=== PATIENT | male | born 1940 | race Caucasian/White ===

== ENCOUNTER 2017-05-04 11:46 | Outpatient (CLI) | payer OTHER ==
[~2017-05-04 11:46] MED LIST: GABAPENTIN300 MG PO; TRAMADOL HCL50 MG PO
== END 2017-05-04 11:47 | disposition home or self-care (01) ==
LOC: SONOGRAMA 11:46
DX: R97.20 Elevated prostate specific antigen [PSA] (principal)

== ENCOUNTER 2017-05-05 08:18 | Outpatient (CLI) | payer OTHER | END 2017-05-05 08:31 | disposition home or self-care (01) | LOC: LAB 08:18 | DX: R97.21 Rising PSA following treatment for malignant neoplasm of prostate (principal) ==

== ENCOUNTER 2017-06-22 09:25 | Outpatient (CLI) | payer OTHER | END 2017-06-22 09:29 | disposition home or self-care (01) | LOC: SONOGRAMA 09:25 | DX: E04.1 Nontoxic single thyroid nodule (principal) ==

== ENCOUNTER 2017-12-27 15:43 | Outpatient (CLI) | payer OTHER | END 2017-12-27 16:11 | disposition home or self-care (01) | LOC: SONOGRAMA 15:43 | DX: E04.1 Nontoxic single thyroid nodule (principal); C75.9 Malignant neoplasm of endocrine gland, unspecified ==

== ENCOUNTER 2017-12-28 08:55 | Outpatient (CLI) | payer OTHER | END 2017-12-28 09:04 | disposition home or self-care (01) | LOC: LAB 08:55 | DX: I11.0 Hypertensive heart disease with heart failure (principal); D53.8 Other specified nutritional anemias; N39.0 Urinary tract infection, site not specified; E78.2 Mixed hyperlipidemia; E04.0 Nontoxic diffuse goiter ==

== ENCOUNTER 2018-04-18 10:49 | Outpatient (CLI) | payer OTHER | END 2018-04-18 11:19 | disposition home or self-care (01) | LOC: LAB 10:49 | DX: D73.89 Other diseases of spleen (principal); I10 Essential (primary) hypertension; E11.9 Type 2 diabetes mellitus without complications; E78.2 Mixed hyperlipidemia; N39.0 Urinary tract infection, site not specified; Z12.11 Encounter for screening for malignant neoplasm of colon; E04.2 Nontoxic multinodular goiter; E78.49 Other hyperlipidemia ==

== ENCOUNTER 2018-05-23 14:15 | Outpatient (CLI) | payer OTHER | END 2018-05-23 14:16 | disposition home or self-care (01) | LOC: SONOGRAMA 14:15 | DX: E04.1 Nontoxic single thyroid nodule (principal); E03.8 Other specified hypothyroidism ==

== ENCOUNTER → 2018-05-25 | Outpatient (CLI) | payer OTHER | END | disposition home or self-care (01) | LOC: LAB 10:20 | DX: Z12.5 Encounter for screening for malignant neoplasm of prostate (principal) ==

== ENCOUNTER 2018-07-23 10:51 | Outpatient (CLI) | payer OTHER | END 2018-07-23 12:27 | disposition home or self-care (01) | LOC: LAB 10:51 | DX: R97.21 Rising PSA following treatment for malignant neoplasm of prostate (principal) ==

== ENCOUNTER → 2019-01-22 12:31 | Outpatient (CLI) | payer OTHER | END | disposition home or self-care (01) | LOC: LAB 12:31 | DX: E04.1 Nontoxic single thyroid nodule (principal); D53.8 Other specified nutritional anemias; I11.0 Hypertensive heart disease with heart failure; N39.0 Urinary tract infection, site not specified; E78.2 Mixed hyperlipidemia ==

== ENCOUNTER 2019-04-02 09:00 | Outpatient (CLI) | payer OTHER | END 2019-04-02 09:01 | disposition home or self-care (01) | LOC: RAD 09:00 | DX: R06.83 Snoring (principal) ==

== ENCOUNTER 2019-04-02 09:54 | Outpatient (CLI) | payer OTHER | END 2019-04-02 09:58 | disposition home or self-care (01) | LOC: LAB 09:54 | DX: E03.8 Other specified hypothyroidism (principal); R73.01 Impaired fasting glucose; Z12.5 Encounter for screening for malignant neoplasm of prostate; E86.0 Dehydration ==

== ENCOUNTER → 2019-09-13 10:33 | Outpatient (CLI) | payer OTHER | END | disposition home or self-care (01) | LOC: LAB 10:33 | PROVIDERS: ATTEND Family Medicine Adult Medicine | DX: Z12.11 Encounter for screening for malignant neoplasm of colon (principal) ==

== ENCOUNTER 2019-10-17 13:32 | Outpatient (CLI) | payer OTHER | END 2019-10-17 13:42 | disposition home or self-care (01) | LOC: LAB 13:32 | PROVIDERS: ATTEND Internal Medicine Endocrinology, Diabetes & Metabolism | DX: I11.0 Hypertensive heart disease with heart failure (principal); E04.1 Nontoxic single thyroid nodule; D53.8 Other specified nutritional anemias; N39.0 Urinary tract infection, site not specified; E78.2 Mixed hyperlipidemia ==

== ENCOUNTER 2020-04-02 10:28 | Outpatient (CLI) | payer OTHER | END 2020-04-02 10:43 | disposition home or self-care (01) | LOC: LAB 10:28 | PROVIDERS: ATTEND Internal Medicine Endocrinology, Diabetes & Metabolism | DX: I11.0 Hypertensive heart disease with heart failure (principal); E78.2 Mixed hyperlipidemia; D53.8 Other specified nutritional anemias; N39.0 Urinary tract infection, site not specified; E04.8 Other specified nontoxic goiter; N40.0 Benign prostatic hyperplasia without lower urinary tract symptoms ==

== ENCOUNTER 2020-05-05 13:50 | Outpatient (CLI) | payer OTHER | END 2020-05-05 13:56 | disposition home or self-care (01) | LOC: LAB 13:50 | PROVIDERS: ATTEND Internal Medicine Endocrinology, Diabetes & Metabolism | DX: N39.0 Urinary tract infection, site not specified (principal) ==

== ENCOUNTER → 2020-05-18 11:58 | Outpatient (CLI) | payer OTHER | END | disposition home or self-care (01) | LOC: LAB 11:58 | PROVIDERS: ATTEND Internal Medicine Endocrinology, Diabetes & Metabolism | DX: N39.0 Urinary tract infection, site not specified (principal); N40.0 Benign prostatic hyperplasia without lower urinary tract symptoms ==

== ENCOUNTER → 2020-09-21 10:47 | Outpatient (CLI) | payer OTHER | END | disposition home or self-care (01) | LOC: LAB 10:47 | PROVIDERS: ATTEND Internal Medicine Endocrinology, Diabetes & Metabolism | DX: I11.0 Hypertensive heart disease with heart failure (principal); D53.9 Nutritional anemia, unspecified; N39.0 Urinary tract infection, site not specified; E04.9 Nontoxic goiter, unspecified; E78.2 Mixed hyperlipidemia ==

== ENCOUNTER 2020-10-20 09:20 | Outpatient (CLI) | payer OTHER | END 2020-10-20 09:21 | disposition home or self-care (01) | LOC: NUCLEAR 09:20 | PROVIDERS: ATTEND Internal Medicine Endocrinology, Diabetes & Metabolism | DX: I44.2 Atrioventricular block, complete (principal); I25.758 Atherosclerosis of native coronary artery of transplanted heart with other forms of angina pectoris ==

== ENCOUNTER 2020-10-28 13:04 | Outpatient (CLI) | payer OTHER | END 2020-10-28 13:09 | disposition home or self-care (01) | LOC: SONOGRAMA 13:04 → MAMO-SONO 15:15 | PROVIDERS: ATTEND Internal Medicine Endocrinology, Diabetes & Metabolism | DX: E04.2 Nontoxic multinodular goiter (principal); E04.1 Nontoxic single thyroid nodule ==

== ENCOUNTER 2021-02-11 14:46 | Outpatient (CLI) | payer OTHER | END 2021-02-11 14:51 | disposition home or self-care (01) | LOC: LAB 14:46 | PROVIDERS: ATTEND Radiology Diagnostic Radiology | DX: H93.3X3 Disorders of bilateral acoustic nerves (principal); R42 Dizziness and giddiness ==

== ENCOUNTER 2021-02-17 10:59 | Outpatient (CLI) | payer OTHER | END 2021-02-17 11:08 | disposition home or self-care (01) | LOC: MRI 10:59 | PROVIDERS: ATTEND Neuromusculoskeletal Medicine & OMM | DX: Q14.2 Congenital malformation of optic disc (principal); G93.89 Other specified disorders of brain; Q28.2 Arteriovenous malformation of cerebral vessels; R42 Dizziness and giddiness; H93.3X9 Disorders of unspecified acoustic nerve; I72.8 Aneurysm of other specified arteries; I65.1 Occlusion and stenosis of basilar artery; I65.09 Occlusion and stenosis of unspecified vertebral artery; I65.29 Occlusion and stenosis of unspecified carotid artery | CPT/HCPCS: 70544; 70553; A9575 ==

== ENCOUNTER 2021-04-23 10:13 | Outpatient (CLI) | payer OTHER | END 2021-04-23 10:23 | disposition home or self-care (01) | LOC: MRI 10:13 | DX: M50.323 Other cervical disc degeneration at C6-C7 level (principal); R26.89 Other abnormalities of gait and mobility | CPT/HCPCS: 72141 ==

== ENCOUNTER 2021-04-29 11:09 | Outpatient (CLI) | payer OTHER | END 2021-04-29 11:22 | disposition home or self-care (01) | LOC: LAB 11:09 | PROVIDERS: ATTEND Internal Medicine Endocrinology, Diabetes & Metabolism | DX: N40.0 Benign prostatic hyperplasia without lower urinary tract symptoms (principal); E78.2 Mixed hyperlipidemia; I11.0 Hypertensive heart disease with heart failure; N39.0 Urinary tract infection, site not specified; D53.8 Other specified nutritional anemias; E04.8 Other specified nontoxic goiter; E11.9 Type 2 diabetes mellitus without complications; E55.9 Vitamin D deficiency, unspecified ==

== ENCOUNTER 2021-04-30 14:49 | Outpatient (CLI) | payer OTHER | END 2021-04-30 14:50 | disposition home or self-care (01) | LOC: LAB 14:49 | PROVIDERS: ATTEND Internal Medicine Endocrinology, Diabetes & Metabolism | DX: N40.0 Benign prostatic hyperplasia without lower urinary tract symptoms (principal); N39.0 Urinary tract infection, site not specified; D53.8 Other specified nutritional anemias; E78.2 Mixed hyperlipidemia; I11.0 Hypertensive heart disease with heart failure; E04.8 Other specified nontoxic goiter; E55.9 Vitamin D deficiency, unspecified ==

== ENCOUNTER 2021-05-06 14:02 | Outpatient (CLI) | payer OTHER | END 2021-05-06 14:10 | disposition home or self-care (01) | LOC: MRI 14:02 | DX: R26.89 Other abnormalities of gait and mobility (principal) | CPT/HCPCS: 72146 ==

== ENCOUNTER 2021-05-26 10:54 | Outpatient (CLI) | payer OTHER | END 2021-05-26 11:00 | disposition home or self-care (01) | LOC: MRI 10:54 | DX: M54.30 Sciatica, unspecified side (principal) | CPT/HCPCS: 72148 ==

== ENCOUNTER 2021-11-17 10:22 | Outpatient (CLI) | payer OTHER | END 2021-11-17 10:37 | disposition home or self-care (01) | LOC: SONOGRAMA 10:22 | PROVIDERS: ATTEND Internal Medicine Endocrinology, Diabetes & Metabolism | DX: E04.1 Nontoxic single thyroid nodule (principal) ==

== ENCOUNTER 2021-11-17 11:31 | Outpatient (CLI) | payer OTHER | END 2021-11-17 11:35 | disposition home or self-care (01) | LOC: LAB 11:31 | PROVIDERS: ATTEND Internal Medicine Endocrinology, Diabetes & Metabolism | DX: E04.1 Nontoxic single thyroid nodule (principal); E04.9 Nontoxic goiter, unspecified ==

== ENCOUNTER → 2022-03-04 | Outpatient (CLI) | payer OTHER | END | disposition home or self-care (01) | LOC: NUCLEAR 11:49 | PROVIDERS: ATTEND Orthopaedic Surgery | DX: M81.0 Age-related osteoporosis without current pathological fracture (principal) ==

== ENCOUNTER 2022-03-22 13:21 | Outpatient (CLI) | payer OTHER | END 2022-03-22 13:30 | disposition home or self-care (01) | LOC: RAD 13:21 | DX: Z01.818 Encounter for other preprocedural examination (principal) ==

== ENCOUNTER 2022-03-22 13:59 | Outpatient (CLI) | payer OTHER | END 2022-03-22 14:00 | disposition home or self-care (01) | LOC: LAB 13:59 | DX: H53.9 Unspecified visual disturbance (principal); Z20.822 Contact with and (suspected) exposure to COVID-19 ==

== ENCOUNTER → 2022-06-08 13:30 | Outpatient (CLI) | payer OTHER | END | disposition home or self-care (01) | LOC: LAB 13:30 | DX: Z20.828 Contact with and (suspected) exposure to other viral communicable diseases (principal); Z11.52 Encounter for screening for COVID-19; Z03.818 Encounter for observation for suspected exposure to other biological agents ruled out; Z20.822 Contact with and (suspected) exposure to COVID-19; D68.9 Coagulation defect, unspecified; I10 Essential (primary) hypertension ==

== ENCOUNTER 2022-06-08 14:04 | Outpatient (CLI) | payer OTHER | END 2022-06-08 14:08 | disposition home or self-care (01) | LOC: RAD 14:04 | PROVIDERS: ATTEND Ophthalmology | DX: Z01.811 Encounter for preprocedural respiratory examination (principal) ==

== ENCOUNTER 2022-08-11 14:17 | Outpatient (CLI) | payer OTHER | END 2022-08-11 14:18 | disposition home or self-care (01) | LOC: LAB 14:17 | PROVIDERS: ATTEND Internal Medicine Endocrinology, Diabetes & Metabolism | DX: E04.9 Nontoxic goiter, unspecified (principal); I11.9 Hypertensive heart disease without heart failure; D53.9 Nutritional anemia, unspecified; N39.0 Urinary tract infection, site not specified; N40.0 Benign prostatic hyperplasia without lower urinary tract symptoms ==

== ENCOUNTER 2023-04-20 12:19 | Outpatient (CLI) | payer OTHER, BC | END 2023-04-20 12:28 | disposition home or self-care (01) | LOC: SONOGRAMA 12:19 | PROVIDERS: ATTEND Internal Medicine Endocrinology, Diabetes & Metabolism | DX: E04.1 Nontoxic single thyroid nodule (principal) ==

== ENCOUNTER → 2023-04-20 13:19 | Outpatient (CLI) | payer OTHER, BC ==
[2023-04-20 13:53] LABS: HEMATOCRIT 45.6 % (39.0-48.0); HEMOGLOBIN 15.6 g/dL (13-16.00); MEAN CELL VOLUME 100.1 fL (80.0-100.00); MEAN CORPUSCULAR HEMOGLOBIN 34.3 pg (27.00-32.0); MEAN CORPUSCULAR HGB CONC 34.3 g/dl (32.0-36.0); PLATELET COUNT 168 K/uL (150-450); RED BLOOD COUNT 4.56 M/uL (4.00-6.00); RED CELL DISTRIBUTION WIDTH 13.5 % (11.5-14.5)
[2023-04-20 15:19] LABS: ALBUMIN 3.9 gm/dL (3.4-5.0); BILIRUBIN TOTAL 0.7 mg/dL (0.3-1.2); CALCIUM 9.1 mg/dL (8.5-10.1); CHOL HDL RATIO 2.8 (0-5.0); CREATININE SERUM 0.88 mg/dL (0.70-1.30); GFR 83.11; GLOBULINA 2.8 G/DL (2.4-3.5); POTASSIUM 3.95 mEq/L (3.5-5.1); T4 FREE 0.87 NG/ML (0.76-1.46); TOTAL PROTEIN 6.7 gm/dL (6.4-8.2); TSH 0.536 uIU/mL (0.358-3.74)
[2023-04-20 15:36] LABS: PROSTATIC SPECIFIC ANTIGEN 5.25 NG/ML (0.010-4.00)
== END | disposition home or self-care (01) ==
LOC: LAB 13:19
PROVIDERS: ATTEND Internal Medicine Endocrinology, Diabetes & Metabolism
DX: I11.0 Hypertensive heart disease with heart failure (principal); E04.1 Nontoxic single thyroid nodule; D34 Benign neoplasm of thyroid gland; N40.0 Benign prostatic hyperplasia without lower urinary tract symptoms; D64.9 Anemia, unspecified

== ENCOUNTER 2024-03-05 10:04 | Outpatient (CLI) | payer OTHER, BC | END 2024-03-05 10:05 | disposition home or self-care (01) | LOC: NUCLEAR 10:04 | PROVIDERS: ATTEND Internal Medicine Endocrinology, Diabetes & Metabolism | DX: M81.0 Age-related osteoporosis without current pathological fracture (principal) ==

== ENCOUNTER → 2024-03-07 12:49 | Outpatient (CLI) | payer OTHER, BC ==
[2024-03-07 13:19] LABS: HEMATOCRIT 45.6 % (39.0-48.0); MEAN CELL VOLUME 97.5 fL (80.0-100.00); MEAN CORPUSCULAR HEMOGLOBIN 34.2 pg (27.00-32.0); PLATELET COUNT 174 K/uL (150-450); RED BLOOD COUNT 4.68 M/uL (4.00-6.00); RED CELL DISTRIBUTION WIDTH 13.3 % (11.5-14.5)
[2024-03-07 13:22] LABS: PH,URINE 5.5 (5.0-8.0); URINE APPEARANCE Clear; URINE BILIRRUBIN Negative (NEGATIVE); URINE BLOOD Negative; URINE COLOR Yellow; URINE GLUCOSE Negative (NEGATIVE); URINE KETONE Negative (NEGATIVE); URINE LEUKOCYTE Small; URINE NITRATE Negative; URINE PROTEIN Negative (NEGATIVE)
[2024-03-07 13:26] LABS: URINE BACTERIA 15.1 uL (0.0-1933); URINE RBC 17.2 uL (0.0-20.8); URINE WBC 20.2 uL (0.0-23.2)
[2024-03-07 13:56] LABS: BILIRUBIN TOTAL 0.92 mg/dL (0.3-1.2); CALCIUM 9.1 mg/dL (8.5-10.1); CHOL HDL RATIO 2.6 (0-5.0); CREATININE SERUM 0.86 mg/dL (0.70-1.30); GFR 85.14; GLOBULINA 2.7 G/DL (2.4-3.5); POTASSIUM 4.36 mEq/L (3.5-5.1); T4 FREE 0.9 NG/ML (0.76-1.46); TOTAL PROTEIN 6.7 gm/dL (6.4-8.2); TSH 0.46 uIU/mL (0.358-3.74)
[2024-03-07 15:21] LABS: FOLIC ACID > 20.00 ng/ml (4.78-20); VITAMIN D3 25 HYDROXY 47.02 ng/ml (30-120)
== END | disposition home or self-care (01) ==
LOC: LAB 12:49
PROVIDERS: ATTEND Internal Medicine Endocrinology, Diabetes & Metabolism
DX: D53.9 Nutritional anemia, unspecified (principal); I11.0 Hypertensive heart disease with heart failure; E78.2 Mixed hyperlipidemia; N39.0 Urinary tract infection, site not specified; E04.9 Nontoxic goiter, unspecified; E55.9 Vitamin D deficiency, unspecified; E53.8 Deficiency of other specified B group vitamins; K76.0 Fatty (change of) liver, not elsewhere classified; Z12.11 Encounter for screening for malignant neoplasm of colon; M06.9 Rheumatoid arthritis, unspecified

== ENCOUNTER 2024-05-13 13:33 | Outpatient (CLI) | payer OTHER, BC | END 2024-05-13 13:38 | disposition home or self-care (01) | LOC: SONOGRAMA 13:33 | PROVIDERS: ATTEND Internal Medicine Endocrinology, Diabetes & Metabolism | DX: E04.1 Nontoxic single thyroid nodule (principal) ==

== ENCOUNTER 2024-09-23 13:31 | Outpatient (CLI) | payer OTHER, BC ==
[2024-09-23 14:20] LABS: PH,URINE 6.5 (5.0-8.0); URINE APPEARANCE Clear; URINE BILIRRUBIN Negative (NEGATIVE); URINE BLOOD Negative; URINE COLOR Dark Yellow; URINE GLUCOSE Negative (NEGATIVE); URINE KETONE Trace (NEGATIVE); URINE LEUKOCYTE Small; URINE NITRATE Negative; URINE PROTEIN Trace (NEGATIVE)
[2024-09-23 14:23] LABS: URINE BACTERIA 40.3 uL (0.0-1933); URINE EPITHELIAL CELLS 3.9 uL (0.0-38.8); URINE RBC 25.1 uL (0.0-20.8)
[2024-09-23 14:35] LABS: BASO % 0.7 % (0.1-1.2); EOS # 0.16 (0.04-0.54); EOS % 2.3 % (0.7-7.0); HEMATOCRIT 46.2 % (40.1-51.0); HEMOGLOBIN 16.2 g/dL (13.7-17.5); LYMPH # 0.94 (1.18-3.74); LYMPH % 13.8 % (19.3-53.1); MEAN CORPUSCULAR HEMOGLOBIN 33.9 pg (25.6-32.2); MONO # 0.55 (0.24-0.82); MONO % 8.1 % (4.7-12.5); NEUT # 5.11 (1.56-6.13); PLATELET COUNT 191 K/uL (163-369); RED BLOOD COUNT 4.78 M/uL (4.63-6.08); RED CELL DISTRIBUTION WIDTH 12.6 % (11.6-14.4)
[2024-09-23 14:54] LABS: URINE CAST 0.29 uL (0.0-1.40)
[2024-09-23 15:40] LABS: VITAMIN D3 25 HYDROXY 49.16 ng/ml (30-120)
[2024-09-23 15:42] LABS: BILIRUBIN TOTAL 0.92 mg/dL (0.3-1.2); CALCIUM 9.6 mg/dL (8.5-10.1); CHOL HDL RATIO 2.9 (0-5.0); CREATININE SERUM 0.96 mg/dL (0.70-1.30); GFR 74.99; GLOBULINA 2.9 G/DL (2.4-3.5); POTASSIUM 4.18 mEq/L (3.5-5.1); T4 FREE 0.94 NG/ML (0.76-1.46); TOTAL PROTEIN 6.9 gm/dL (6.4-8.2); TSH 0.716 uIU/mL (0.358-3.74)
[2024-09-23 17:22] LABS: PROSTATIC SPECIFIC ANTIGEN 12.2 NG/ML (0.010-4.00)
[2024-09-25 09:08] LABS: % FREE PSA 37.5 % (.); free psa 4.09 ng/mL; total psa 10.9 ng/mL (0.0-4.0)
== END 2024-09-23 13:32 | disposition home or self-care (01) ==
LOC: LAB 13:31
PROVIDERS: ATTEND Internal Medicine Endocrinology, Diabetes & Metabolism
DX: I11.9 Hypertensive heart disease without heart failure (principal); D53.9 Nutritional anemia, unspecified; N39.0 Urinary tract infection, site not specified; E78.2 Mixed hyperlipidemia; E04.9 Nontoxic goiter, unspecified; E55.9 Vitamin D deficiency, unspecified; E53.8 Deficiency of other specified B group vitamins; N36.2 Urethral caruncle; C73 Malignant neoplasm of thyroid gland; N40.0 Benign prostatic hyperplasia without lower urinary tract symptoms